=== PATIENT | male | born 1975 | race African-American/Black ===

== ENCOUNTER 2017-05-10 17:36 | Emergency (ER) | payer SELFPAY ==
[2017-05-10 18:50] VITALS: BP 118/82
--- NOTE | 2017-05-11 04:37 | ED.ADGEN ---
Past History Past Medical History: Depression, Other Past Surgical History: Other Alcohol Use: Heavy Drug Use: Marijuana Adult General Chief Complaint Chief Complaint Back pain HPI HPI Patient is a 42-year-old Afro[place] male presents with low back pain 3 weeks after lifting a heavy couch. Pain is nonradiating and reproduces with palpation and movement.. Pain is not radiating and is not associated with bowel or bladder incontinence. She does take naproxen without relief. He has not been evaluated for this complaint prior to his evaluation today. Review of Systems Review of Systems Review symptoms as per history of present illness. All other review symptoms are negative. Allergies Allergies Allergies Coded Allergies Type Severity Reaction Last Updated Verified No Known Drug Allergies 04/14/15 No Physical Exam Physical Exam Constitutional: Well developed, well nourished, no acute distress. HENT: Normocephalic, atraumatic, bilateral external ears normal, oropharynx moist, no oral exudates, nose normal. Eyes: PERRLA, EOM. Back: No midline bony tenderness or CVA tenderness. Diffuse low lower lumbar paravertebral pain which reproduces with palpation and rotation Neurologic: Alert and oriented X 3, lower extremity, no motor weakness or loss of sensation. Psychologic: Affect normal, judgement normal, mood normal. Current Patient Data Vital Signs Vital Signs Date Time Temp Pulse Resp B/P (MAP) Pulse Ox O2 Delivery O2 Flow Rate FiO2 05/10/17 18:50 82 18 118/82 (94) Room Air 05/10/17 18:50 97 05/10/17 17:36 98.0 EKG EKG [] Radiology/Procedures Radiology/Procedures [] Course & Med Decision Making Course & Med Decision Making Pertinent Labs and Imaging studies reviewed. (See chart for details) [The chemical back pain which reproduces on exam without focal neurologic deficit. Will treat supportively with PCP follow-up.] Final Impression Final Impression [1. Acute low back pain] Problems: Dragon Disclaimer Dragon Disclaimer This electronic medical record was generated, in whole or in part, using a voice recognition dictation system. PARTHA MILLS DO May 11, 2017 04:37
== END 2017-05-10 18:50 | disposition home or self-care (01) ==
LOC: ER 17:36
DX: M54.5 Low back pain (principal); F12.10 Cannabis abuse, uncomplicated; F10.10 Alcohol abuse, uncomplicated
CPT/HCPCS: 99283